=== PATIENT | female | born 1940 | race Caucasian/White ===

== ENCOUNTER 2016-09-06 12:02 | Outpatient (CLI) | payer MEDICARE, OTHER | END 2016-09-06 12:03 | disposition home or self-care (01) | DX: I48.0 Paroxysmal atrial fibrillation (principal) ==

== ENCOUNTER 2016-09-09 10:57 | Outpatient (CLI) | payer MEDICARE, OTHER | END 2016-09-09 10:58 | disposition home or self-care (01) | DX: I48.0 Paroxysmal atrial fibrillation (principal) ==

== ENCOUNTER 2016-09-12 13:10 | Outpatient (CLI) | payer MEDICARE, OTHER | END 2016-09-12 13:11 | disposition home or self-care (01) | DX: I48.0 Paroxysmal atrial fibrillation (principal) ==

== ENCOUNTER 2016-09-22 10:28 | Outpatient (CLI) | payer MEDICARE, OTHER | END 2016-09-22 10:29 | disposition home or self-care (01) | LOC: LAB 10:28 | PROVIDERS: ATTEND Internal Medicine | DX: I48.0 Paroxysmal atrial fibrillation (principal) | CPT/HCPCS: 85610 ==

== ENCOUNTER 2016-11-14 12:55 | Observation (INO) | payer MEDICARE, OTHER ==
[2016-11-14] MEDS ORDERED: NITROGLYCERIN 2% PASTE TOP STA (13:45)
[2016-11-14] MEDS ORDERED: NITROGLYCERIN 2% PASTE TOP ONE (13:47)
[2016-11-14] MEDS ORDERED: FUROSEMIDE 40 MG/4 ML VIAL IVP STA (14:43)
[2016-11-14] MEDS ORDERED: FUROSEMIDE 20 MG/2 ML VIAL IVP ONE (14:58)
[2016-11-14] MEDS ORDERED: ASPIRIN CHEW 81 MG TABLET PO ONE ×2 (15:46→18:00)
[2016-11-14] MEDS ORDERED: NITROGLYCERIN SL 0.4 MG TABLET SL PRN (15:46)
[2016-11-14] MEDS ORDERED: MORPHINE 2 MG/ML SYRINGE IVP PRN (15:46)
[2016-11-14] MEDS ORDERED: GABAPENTIN 300 MG CAPSULE PO PRN (15:48)
[2016-11-14] MEDS ORDERED: traZODone 50 MG TABLET PO SCH ×2 (16:00→21:00)
[2016-11-14] MEDS ORDERED: ZOLEDRONIC ACID 5 MG IV SCH (16:00)
[2016-11-14] MEDS: methylPREDNISolone SUCCINATE 40 MG/ML VIAL IVP SCH ×2 (17:51→22:06)
[2016-11-14] MEDS: SODIUM CHLORIDE FLUSH 0.9% 10 ML SYRINGE IVP PRN (17:51)
[2016-11-14] MEDS ORDERED: ONDANSETRON ODT 4 MG TABLET TL PRN (18:50)
[2016-11-14] MEDS: oxyCOD/ACETAMIN 5 MG/325 MG TABLET PO PRN ×2 (19:46→22:06)
[2016-11-14] MEDS: IPRATROPIUM/ALBUTEROL 3 ML NEB INH PRN (20:36)
[2016-11-14] MEDS: BUDESONIDE 0.5 MG/2 ML NEB INH SCH (20:36)
[2016-11-14] MEDS: APIXABAN 2.5 MG TABLET PO SCH (20:37)
[2016-11-14] MEDS: METOPROLOL TARTRATE 50 MG TABLET PO SCH (20:37)
[2016-11-14] MEDS ORDERED: METOPROLOL TARTRATE 25 MG TABLET PO SCH (21:00)
[2016-11-14] MEDS: SODIUM CHLORIDE FLUSH 0.9% 10 ML SYRINGE IVP SCH (22:06)
[2016-11-14] MEDS ORDERED: oxyCOD/ACETAMIN 5 MG/325 MG TABLET PO SCH (23:00)
[2016-11-15] MEDS: oxyCOD/ACETAMIN 5 MG/325 MG TABLET PO PRN ×3 (03:19→12:27)
[2016-11-15] MEDS: methylPREDNISolone SUCCINATE 40 MG/ML VIAL IVP SCH (06:21)
[2016-11-15] MEDS: SODIUM CHLORIDE FLUSH 0.9% 10 ML SYRINGE IVP SCH (06:21)
[2016-11-15] MEDS: BUDESONIDE 0.5 MG/2 ML NEB INH SCH (07:32)
[2016-11-15] MEDS: IPRATROPIUM/ALBUTEROL 3 ML NEB INH PRN (07:32)
[2016-11-15] MEDS ORDERED: DULoxetine 30 MG CAPSULE PO SCH (09:00)
[2016-11-15] MEDS ORDERED: LOSARTAN 50 MG TABLET PO SCH (09:00)
[2016-11-15] MEDS ORDERED: CHOLECALCIFEROL 5,000 UNIT CAPSULE PO SCH (09:00)
[2016-11-15] MEDS ORDERED: POLYETHYLENE GLYCOL 3350 17 GM PACKET PO SCH (09:00)
[2016-11-15] MEDS ORDERED: LUBIPROSTONE 24 MCG PO SCH (09:00)
[2016-11-15] MEDS ORDERED: diltiaZEM CD 120 MG CAPSULE PO SCH (09:00)
[2016-11-15] MEDS: APIXABAN 2.5 MG TABLET PO SCH (09:23)
[2016-11-15] MEDS: METOPROLOL TARTRATE 50 MG TABLET PO SCH (09:24)
[2016-11-15] MEDS: SODIUM CHLORIDE FLUSH 0.9% 10 ML SYRINGE IVP PRN ×2 (09:36→12:28)
[2016-11-15] MEDS ORDERED: FUROSEMIDE 40 MG TABLET PO SCH (10:00)
[2016-11-15] MEDS ORDERED: FUROSEMIDE 40 MG/4 ML VIAL IVP ONE (11:49)
== END 2016-11-15 14:25 | disposition home or self-care (01) ==
DX: I13.0 Hypertensive heart and chronic kidney disease with heart failure and stage 1 through stage 4 chronic kidney disease, or unspecified chronic kidney disease (principal); I50.21 Acute systolic (congestive) heart failure; J44.9 Chronic obstructive pulmonary disease, unspecified; I48.2 Chronic atrial fibrillation; I27.2 Other secondary pulmonary hypertension; R09.02 Hypoxemia; K59.09 Other constipation; M54.9 Dorsalgia, unspecified; G89.4 Chronic pain syndrome; M81.0 Age-related osteoporosis without current pathological fracture; F41.8 Other specified anxiety disorders; Z79.01 Long term (current) use of anticoagulants; Z87.891 Personal history of nicotine dependence; Z79.51 Long term (current) use of inhaled steroids; Z79.891 Long term (current) use of opiate analgesic
CPT/HCPCS: 36415; 71020; 80048; 80053; 83690; 83880; 84484; 85025; 93005; 93010; 93306; 94640; 94761; 96374; 96375; 96376; 99284; 99285; A9270; G0378; J7620; J7626

== ENCOUNTER 2016-11-24 12:01 | Outpatient (CLI) | payer MEDICARE, OTHER | END 2016-11-24 12:02 | disposition home or self-care (01) | DX: I48.1 Persistent atrial fibrillation (principal) ==

== ENCOUNTER 2017-03-16 11:40 | Inpatient (IN) | payer MEDICARE, OTHER ==
[2017-03-16 15:10] LABS: BASOPHILS # (AUTO) 0.1 10^3/uL (0.0-0.1); EOSINOPHILS # (AUTO) 0.2 10^3/uL (0.0-0.7); EOSINOPHILS % (AUTO) 2.1 %; HCT - HEMATOCRIT 39.8 % (37.0-47.0); HGB - HEMOGLOBIN 13.3 g/dL (12.0-16.0); LYMPHOCYTES # (AUTO) 1.4 10^3/uL (1.5-3.5); LYMPHOCYTES % (AUTO) 17.5 %; MEAN CORPUSCULAR HEMOGLOBIN 27.9 pg (27.0-31.0); MEAN CORPUSCULAR HGB CONC 33.3 g/dL (32.0-36.0); MEAN CORPUSCULAR VOLUME 83.7 fL (81.0-99.0); MEAN PLATELET VOLUME 8.4 fL (7.9-10.8); MONOCYTES # (AUTO) 0.7 10^3/uL (0.0-1.0); MONOCYTES % (AUTO) 8.6 %; NEUTROPHILS # (AUTO) 5.7 10^3/uL (1.5-6.6); NEUTROPHILS % (AUTO) 70.8 %; RED BLOOD COUNT 4.76 10^6/uL (4.20-5.40); RED CELL DISTRIBUTION WIDTH 13.6 % (12.0-15.0); UNCORRECTED WHITE BLOOD COUNT 8.1 x10^3/uL; WHITE BLOOD COUNT 8.1 x10^3/uL (4.8-10.8)
[2017-03-16] MEDS ORDERED: SODIUM CHLORIDE FLUSH 0.9% 10 ML SYRINGE IVP ONE ×3 (15:20→22:06)
[2017-03-16 15:25] LABS: ALBUMIN/GLOBULIN RATIO 1.3 (1.0-2.2); BILIRUBIN,TOTAL 0.8 mg/dL (0.2-1.0); CALCIUM 9.4 mg/dL (8.5-10.3); CREATININE 0.7 mg/dL (0.4-1.0); POTASSIUM 3.5 mmol/L (3.5-5.0); TOTAL PROTEIN 7.2 g/dL (6.7-8.2)
--- NOTE | 2017-03-16 15:56 | ED Physician Documentation ---
History of Present Illness - Stated complaint Stated Complaint: DIFFICULTY BREATHING - Chief complaint Chief Complaint: Cardiac - History obtained from History obtained from: Patient, Family - History of Present Illness Timing: How many weeks ago (1) Pain level max: 4 Pain level now: 4 Improved by: rest Worsened by: walking - Additonal information Additional information: Patient is a 76-year-old female who presents to the emergency department with difficulty breathing and a 4 pound weight gain after a cardiac ablation on March 08 at [facility] with Dr. Alcala. She denies any current chest pain. No fevers. No cough. Review of Systems Ten Systems: 10 systems reviewed and negative Constitutional: denies: Fever, Chills Nose: denies: Rhinorrhea / runny nose, Congestion Throat: denies: Sore throat Cardiac: denies: Chest pain / pressure Respiratory: reports: Dyspnea. 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 - Present Medications Home Medications: Ambulatory Orders Medication Instructions Recorded Confirmed Omeprazole [PriLOSEC] 20 mg PO DAILY 06/27/13 03/16/17 Ondansetron [Zofran Odt] 8 mg PO Q8H PRN 06/27/13 03/16/17 Albuterol Sulfate [Proventil Hfa 2 puffs INH Q4H PRN 08/19/16 11/14/16 Inhaler] Duloxetine HCl [Cymbalta] 60 mg PO DAILY 08/19/16 03/16/17 Fluticasone Propionate [Flovent 110 mcg INH BID PRN 08/19/16 03/16/17 Hfa] Gabapentin 300 mg PO TID 08/19/16 03/16/17 Losartan Potassium 50 mg PO DAILY 08/19/16 03/16/17 Lubiprostone [Amitiza] 24 mcg PO DAILY 08/19/16 03/16/17 Zoledronic Acid [Reclast] 5 mg IV .YEARLY 08/19/16 03/16/17 oxyCODONE/ACET 5/325 [Percocet 5 1 - 2 tab PO Q6H PRN 08/19/16 03/16/17 mg/325 mg] traZODone [Desyrel] 100 mg PO HS 08/19/16 03/16/17 Cholecalciferol [Vitamin D3] 5,000 units PO DAILY 11/14/16 03/16/17 Diltiazem HCl [Diltiazem 24Hr ER] 120 mg PO DAILY 11/14/16 03/16/17 Metoprolol Tartrate [Lopressor] 50 mg PO BID 11/14/16 03/16/17 Furosemide [Lasix] 80 mg PO DAILY #60 tablet 11/15/16 03/16/17 Biotin 5,000 mcg PO DAILY 03/16/17 03/16/17 Potassium Chloride 20 meq PO DAILY 03/16/17 03/16/17 - Allergies Allergies/Adverse Reactions: Allergies Allergy/AdvReac Type Severity Reaction Status Date / Time Penicillins AdvReac Intermediate rapid HR Verified 03/16/17 11:49 Sulfa (Sulfonamide AdvReac Intermediate Cramps Verified 03/16/17 11:49 Antibiotics) clindamycin AdvReac Nausea Verified 03/16/17 11:49 - Social History Does the pt smoke?: No Smoking Status: Former smoker Does the pt drink ETOH?: Yes Does the pt have substance abuse?: No - Immunizations Immunizations are current?: Yes - POLST Patient has POLST: Yes POLST Status: Full Code PD ED PE NORMAL - Vitals Vital signs reviewed: Yes - General General: Alert and oriented X 3, No acute distress - HEENT HEENT: Moist mucous membranes, Pharynx benign - Neck Neck: Supple, no meningeal sign - Cardiac Cardiac: RRR - Respiratory Respiratory: No respiratory distress, Other (Mild rhonchi bilaterally) - Abdomen Abdomen: Soft, Non tender, Non distended - Derm Derm: Warm and dry - Extremities Extremities: Other (2+ bilateral lower extremity pitting edema) - Neuro Neuro: Alert and oriented X 3 - Psych Psych: Normal mood, Normal affect Results - Vitals Vitals: Vital Signs - 24 hr 03/16/17 03/16/17 03/16/17 11:42 14:17 15:22 Temperature 36.7 C 35.6 C L Heart Rate 47 L 55 L 43 L Respiratory 24 19 20 Rate Blood Pressure 108/43 L 102/52 L 121/52 L O2 Saturation 93 92 98 03/16/17 17:19 Temperature Heart Rate 47 L Respiratory 12 Rate Blood Pressure 136/42 H O2 Saturation 97 Oxygen O2 Source Room air - EKG (time done) 1546 Rate: Rate (enter#) (46) Rhythm: Sinus bradycardia [place]: Normal Intervals: Prolonged [place] QRS: Normal Ischemia: Non specific changes Computer interpretation: Agree with computer - Labs Labs: Laboratory Tests 03/16/17 03/16/17 03/16/17 14:55 14:55 14:55 WBC 8.1 RBC 4.76 Hgb 13.3 Hct 39.8 MCV 83.7 MCH 27.9 MCHC 33.3 RDW 13.6 Plt Count 196 MPV 8.4 Neut # 5.7 Lymph # 1.4 L [place] # 0.7 Eos # 0.2 Baso # 0.1 Absolute Nucleated RBC 0.00 Nucleated RBCs 0.0 Sodium 141 Potassium 3.5 Chloride 104 Carbon Dioxide 29 Anion Gap 8.0 BUN 15 Creatinine 0.7 Estimated GFR (MDRD) 81 L Glucose 94 Calcium 9.4 Total Bilirubin 0.8 AST 29 ALT 51 Alkaline Phosphatase 82 B-Natriuretic Peptide 384 H Total Protein 7.2 Albumin 4.0 Globulin 3.2 Albumin/Globulin Ratio 1.3 Lipase 19 L - Rads (name of study) cxr Radiology: Prelim report reviewed, EMP read contemporaneously, See rad report ( Pulmonary venous congestion. Mild diffuse bilateral airspace disease, could represent mild pulmonary edema. Stable marked cardiomegaly. ) ct chest Radiology: Prelim report reviewed, EMP read contemporaneously, See rad report ( No evidence of pulmonary emboli. Acute on chronic lung disease consisting of tiny bilateral pleural effusions and diffuse interstitial prominence, pulmonary edema favored over airway disease. Half a dozen small subpleural nonspecific densities. Recommend consideration of a follow-up noncontrast chest CT in 6 months to begin determination of long-term stability and therefore, significance (assuming that this patient has no previous outside chest CTs to compare ). 4. Moderate cardiomegaly. Small pericardial effusion. 5. Moderate hiatal hernia. 6. Mild mediastinal adenopathy. ) PD MEDICAL DECISION MAKING - ED course Complexity details: reviewed results, re-evaluated patient, considered differential, d/w patient, d/w clinical sales consultant ED course: 1649 - Dr. Alcala (cardiology) recommends decrease metoprolol to 25mg PO BID and continue flecanide. IV lasix and monitor overnight in the hospital on tele. Patient is a 76-year-old female who appears to be fluid overloaded after her recent cardiac ablation. She also has significant bradycardia. After discussion with her editor managing director, will place on Lasix here and decrease her metoprolol to 25 mg p.o. twice daily. She is not hypoxic. Discussed the case with the hospitalist here who accepts. This document was made in part using voice recognition software. While efforts are made to proofread this document, sound alike and grammatical errors may occur. Departure - Departure Disposition: ED Place in Observation Clinical Impression: Pericardial effusion, Bradycardia Pulmonary edema Qualifiers: Chronicity: acute Qualified Code(s): J81.0 - Acute pulmonary edema Condition: Stable Discharge Date/Time: 03/16/17 20:03
--- NOTE | 2017-03-16 16:12 | XRAY Preliminary Report ---
Exam: XR Chest 1 View IMPRESSION: Pulmonary venous congestion. Mild diffuse bilateral airspace disease, could represent mil d pulmonary edema. Stable marked cardiomegaly. [facility] SITE ID: [id number]
--- NOTE | 2017-03-16 16:14 | XRAY Report ---
EXAM: CHEST RADIOGRAPHY EXAM DATE: 03/16/2017 04:03 PM. CLINICAL HISTORY: Dyspnea. COMPARISON: Chest 11/14/2016. TECHNIQUE: 1 view. FINDINGS: Lungs/Pleura: Pulmonary venous congestion. Mild diffuse bilateral airspace disease, could represent m ild pulmonary edema. Mediastinum: Stable marked cardiomegaly. IMPRESSION: Pulmonary venous congestion. Mild diffuse bilateral airspace disease, could represent mil d pulmonary edema. Stable marked cardiomegaly. [facility] Referring Provider Line: [phone] SITE ID: [id number]
[2017-03-16] MEDS ORDERED: IOPAMIDOL-300 100 ML VIAL IVP ONE (16:25)
--- NOTE | 2017-03-16 16:47 | CT Preliminary Report ---
Exam: CT Chest Angio (PE) IMPRESSION: 1. No evidence of pulmonary emboli. 2. Acute on chronic lung disease consisting of tiny bilateral pleural effusions and diffuse interstit ial prominence, pulmonary edema favored over airway disease. 3. Half a dozen small subpleural nonspecific densities. Recommend consideration of a follow-up noncon trast chest CT in 6 months to begin determination of long-term stability and therefore significance ( assuming that this patient has no previous outside chest CTs to compare ). 4. Moderate cardiomegaly. Small pericardial effusion. 5. Moderate hiatal hernia. 6. Mild mediastinal adenopathy. [facility] SITE ID: [id number]
[2017-03-16] MEDS ORDERED: FUROSEMIDE 40 MG/4 ML VIAL IVP STA (16:56)
--- NOTE | 2017-03-16 17:08 | CT Report ---
EXAM: CT ANGIOGRAM CHEST EXAM DATE: 03/16/2017 04:22 p.m. CLINICAL HISTORY: Dyspnea, status post cardiac ablation 03/08. Bilateral leg and feet edema. COMPARISON: None. TECHNIQUE: Routine helical imaging was performed through the chest in the pulmonary arterial phase. I V Contrast: 80 mL Isovue-300. Reconstructions: Coronal 3-D MIP reconstructions.Sagittal and coronal. In accordance with CT protocol optimization, one or more of the following dose reduction techniques w ere utilized for this exam: automated exposure control, adjustment of mA and/or KV based on patient s ize, or use of iterative reconstructive technique. FINDINGS: Pulmonary Arteries: Diagnostic quality: Adequate through the segmental arteries. No evidence for acute or chronic pulmona ry emboli. RV/LV is within normal limits. There is no interventricular septal bowing. There is no reflux of cont rast material in the IVC. Lungs/Pleura: Overexpanded, emphysematous changes. Mild diffuse interstitial prominence. Half a dozen small subpleural nodular densities as follows, series 5: 5 x 7 mm right lower lobe image 76, 6 x 4 m m lingula image 76, 4 mm left lower lobe image 79, 2 x 8 mm right lower lobe image 94. Tiny bilateral pleural effusions. Mediastinum: Moderate cardiomegaly. Small pericardial effusion. Multiple subcentimeter as well as mildly enlarged mediastinal lymph nodes, greatest cross-sectional d iameter 1.4 cm. Moderate hiatal hernia. Thoracic Aorta: Unremarkable. Upper Abdomen: Unremarkable. Other: None. IMPRESSION: 1. No evidence of pulmonary emboli. 2. Acute on chronic lung disease consisting of tiny bilateral pleural effusions and diffuse interstit ial prominence, pulmonary edema favored over airway disease. 3. Half a dozen small subpleural nonspecific densities. Recommend consideration of a follow-up noncon trast chest CT in 6 months to begin determination of long-term stability and therefore, significance (assuming that this patient has no previous outside chest CTs to compare ). 4. Moderate cardiomegaly. Small pericardial effusion. 5. Moderate hiatal hernia. 6. Mild mediastinal adenopathy. [facility] Referring Provider Line: [phone] SITE ID: [id number]
[2017-03-16] MEDS ORDERED: FUROSEMIDE 40 MG/4 ML VIAL ONE (17:10)
[2017-03-16] MEDS ORDERED: oxyCOD/ACETAMIN 5 MG/325 MG TABLET PO STA (18:14)
[2017-03-16] MEDS ORDERED: oxyCOD/ACETAMIN 5 MG/325 MG TABLET PO ONE ×2 (18:22→18:25)
[2017-03-16] MEDS ORDERED: ONDANSETRON 4 MG/2 ML VIAL IVP PRN (19:46)
[2017-03-16] MEDS ORDERED: FLUTICASONE HFA 110 MCG INHALER INH PRN (19:48)
[2017-03-16 19:55] LABS: BASOPHILS % (AUTO) 0.4 %; EOSINOPHILS # (AUTO) 0.1 10^3/uL (0.0-0.7); EOSINOPHILS % (AUTO) 1.7 %; HCT - HEMATOCRIT 40.3 % (37.0-47.0); HGB - HEMOGLOBIN 13.4 g/dL (12.0-16.0); LYMPHOCYTES # (AUTO) 1.1 10^3/uL (1.5-3.5); LYMPHOCYTES % (AUTO) 14.6 %; MEAN CORPUSCULAR HEMOGLOBIN 27.8 pg (27.0-31.0); MEAN CORPUSCULAR HGB CONC 33.2 g/dL (32.0-36.0); MEAN CORPUSCULAR VOLUME 83.7 fL (81.0-99.0); MEAN PLATELET VOLUME 8.3 fL (7.9-10.8); MONOCYTES # (AUTO) 0.7 10^3/uL (0.0-1.0); MONOCYTES % (AUTO) 9.4 %; NEUTROPHILS # (AUTO) 5.6 10^3/uL (1.5-6.6); NEUTROPHILS % (AUTO) 73.9 %; RED BLOOD COUNT 4.82 10^6/uL (4.20-5.40); RED CELL DISTRIBUTION WIDTH 13.5 % (12.0-15.0); UNCORRECTED WHITE BLOOD COUNT 7.6 x10^3/uL; WHITE BLOOD COUNT 7.6 x10^3/uL (4.8-10.8)
[2017-03-16 20:16] LABS: INR 2.2 (0.8-1.2); PT - PROTHROMBIN TIME 25.6 secs (9.9-12.6)
[2017-03-16] MEDS: GABAPENTIN 100 MG CAPSULE PO SCH (22:12)
[2017-03-16] MEDS: traZODone 50 MG TABLET PO SCH (22:12)
[2017-03-16] MEDS: FUROSEMIDE 40 MG/4 ML VIAL IVP SCH (22:12)
[2017-03-16 22:25] LABS: BILIRUBIN,URINE NEGATIVE (NEGATIVE)
[2017-03-16 22:27] LABS: UA w/ MICROSCOPIC CHARGE YES
[2017-03-16 22:33] LABS: UR CULTURE IF IND INDICATED
[2017-03-17] MEDS: oxyCOD/ACETAMIN 5 MG/325 MG TABLET PO PRN ×3 (01:43→22:15)
[2017-03-17] MEDS ORDERED: oxyCOD/ACETAMIN 5 MG/325 MG TABLET PO SCH (04:00)
[2017-03-17] MEDS ORDERED: BUDESONIDE 0.5 MG/2 ML NEB INH PRN (07:19)
[2017-03-17] MEDS ORDERED: CHOLECALCIFEROL 1,000 UNIT TABLET PO SCH (09:00)
[2017-03-17] MEDS: GABAPENTIN 100 MG CAPSULE PO SCH ×3 (09:30→22:15)
[2017-03-17] MEDS: FUROSEMIDE 40 MG/4 ML VIAL IVP SCH ×2 (09:31→20:09)
[2017-03-17] MEDS: DULoxetine 30 MG CAPSULE PO SCH (09:31)
[2017-03-17] MEDS: FAMOTIDINE 20 MG TABLET PO SCH (09:31)
[2017-03-17] MEDS: LOSARTAN 50 MG TABLET PO SCH (09:31)
[2017-03-17] MEDS: POTASSIUM CHLORIDE 20 MEQ TABLET PO SCH (09:31)
[2017-03-17] MEDS: RIVAROXABAN 10 MG TABLET PO SCH (12:58)
--- NOTE | 2017-03-17 16:23 | PROVIDER PROGRESS NOTE ---
Assessment/Plan - Problem List (1) Congestive heart failure Qualifiers: Congestive heart failure type: diastolic Congestive heart failure chronicity: acute on chronic Qualified Code(s): I50.33 - Acute on chronic diastolic (congestive) heart failure Assessment/Plan: Echo showed nl LVEF, mild-moderate aortic stenosis and trivial pericardial effusion. Trops were cancelled on [employer], with no knowledge to me. This afternoon, Pt went into Afib with a controlled response, HR of 80 and told RN she was more symptomatic. EKG confirmed Afib, no other EKG changes. Will re-order troponin blood tests, continue diuresis and restart Flecainide to return to NSR (3) Atrial fibrillation with RVR Assessment/Plan: Paroxysms of Afib can be seen after ablation and may be the cause of her CHF exacerbation. Will restart Flecainide, but no B-cassie or Diltiazem due to presentation with markd bradycardia. Records of her Cardiology management would be helpful, will request. Continue Xarelto, which should be taken with dinner, not in am, as she was doing at home. (4) Pericardial effusion Assessment/Plan: Unclear if this is due to CHF exacerbation or a result of ablation. Old records would be helpful, tereso request. Since ther is no tamponade and a trivial pericardial effusion, will continue with diuresis, follow Is and Os (5) COPD (chronic obstructive pulmonary disease) Qualifiers: COPD type: emphysema Assessment/Plan: Abnormal CXR with mediastinal lymph nodes, which may also be adding to her SOB. Unknown if this is a new finding, but CT chest showed no tumor to suggest lung cancer. Continue prn inhalers. (6) Deep vein thrombosis (DVT) prophylaxis not tolerated by patient Assessment/Plan: Pt on full dose anticoagulation, using Xarelto. - Current Meds Current Meds: Current Medications Generic Name Dose Route Start Last Admin Trade Name Freq PRN Reason Stop Dose Admin Cholecalciferol 5,000 unit 03/17/17 09:00 03/17/17 09:31 Vitamin D3 PO 5,000 unit DAILY BOB Administration Duloxetine HCl 60 mg 03/17/17 09:00 03/17/17 09:31 Cymbalta PO 60 mg DAILY BOB Administration Famotidine 20 mg 03/17/17 09:00 03/17/17 09:31 Pepcid PO 20 mg DAILY BOB Administration Furosemide 40 mg 08/03/17 21:00 03/17/17 09:31 Lasix Inj 40 Mg Vial IVP 40 mg BID BOB Administration Gabapentin 300 mg 03/16/17 22:00 03/17/17 14:09 Neurontin PO 300 mg TID BOB Administration Losartan Potassium 50 mg 03/17/17 09:00 03/17/17 09:31 Cozaar PO Not Given DAILY BOB Oxycodone/Acetaminophen 1 tab 03/16/17 19:50 03/17/17 14:08 Percocet 5 Mg/325 Mg PO 1 tab Q6H PRN Administration PAIN Potassium Chloride 20 meq 03/17/17 09:00 03/17/17 09:31 K-Dur PO 20 meq DAILY BOB Administration Rivaroxaban 20 mg 03/17/17 12:00 03/17/17 12:58 Xarelto PO 20 mg 1700 BOB Administration Trazodone HCl 100 mg 03/16/17 21:00 03/16/17 22:12 Desyrel PO 100 mg QPM BOB Administration - Lab Result Fish Bone Diagrams: 03/16/17 19:44 03/19/17 07:58 - Additional Planning My Orders: My Active Orders 03/16/17 19:32 Activity Orders [RC] QSHIFT 03/16/17 19:46 Ondansetron Inj [Zofran Inj] 4 mg IVP Q12H PRN 03/16/17 19:50 oxyCODONE/ACET 5/325 [Percocet 5 mg/325 mg] 1 tab PO Q6H PRN 03/16/17 19:56 Telemetry- [RC] Q4HR 03/16/17 21:00 FUROSEMIDE INJ 40mg VIAL [LASIX INJ 40 mg VIAL] 40 mg IVP BID traZODone [Desyrel] 100 mg PO QPM 03/16/17 22:00 Gabapentin [Neurontin] 300 mg PO TID 03/17/17 07:19 Budesonide [Pulmicort] 0.5 mg INH RTBID PRN 03/17/17 09:00 Cholecalciferol [Vitamin D3] 5,000 unit PO DAILY DULoxetine [Cymbalta] 60 mg PO DAILY Famotidine [Pepcid] 20 mg PO DAILY Losartan [Cozaar] 50 mg PO DAILY Potassium Chloride [K-Dur] 20 meq PO DAILY 03/17/17 10:00 Echo Transthoracic Complete [ECHO] Routine 03/17/17 12:00 Rivaroxaban [Xarelto] 20 mg PO 1700 03/17/17 15:07 RT [Nebulizer/MDI Tx.] [RC] .bidprn 03/17/17 21:00 Flecainide [Tambocar] 75 mg PO BID Subjective - Subjective Patient Reports: Feeling Better (Less SOB. Having good diuresis.) Nursing Reports: No Complaints Objective Vital Signs: Vital Signs - 24 hr 03/16/17 03/16/17 03/16/17 20:07 20:15 23:19 Temperature 36.4 C L 36.7 C Heart Rate 53 L Heart Rate [ 56 L 54 L Brachial] Respiratory 23 16 18 Rate Blood Pressure 114/64 Blood Pressure 136/75 H 131/47 H [Right Brachial artery] O2 Saturation 93 94 03/17/17 03/17/17 03/17/17 06:05 08:41 13:26 Temperature 36.4 C L 36.3 C L 36.5 C Heart Rate Heart Rate [ 51 L 52 L 60 Brachial] Respiratory 16 17 16 Rate Blood Pressure Blood Pressure 128/49 L 99/51 L 128/44 L [Right Brachial artery] O2 Saturation 100 94 96 03/17/17 15:57 Temperature 36.4 C L Heart Rate Heart Rate [ 80 Brachial] Respiratory 16 Rate Blood Pressure Blood Pressure 157/55 H [Right Brachial artery] O2 Saturation 95 Oxygen O2 Source Room air I&O (Last 24 Hrs): Intake and Output Totals x24h 03/15/17 03/16/17 03/17/17 23:59 23:59 23:59 Intake Total 336 770 Output Total 650 900 Balance -314 -130 General: Alert, Oriented x3 HEENT: Mucous membr. moist/pink Neck: No JVD, +2 carotid pulse wo bruit Cardiovascular: Regular rate, Other (Distant HS) Respiratory: No respiratory distress, Breath sounds nml Abdomen: Soft Extremities: Other (Trace pretibbial edema) - Results Results: Laboratory Results WBC 7.6 x10^3/uL (4.8-10.8) 03/16/17 19:44 RBC 4.82 10^6/uL (4.20-5.40) 03/16/17 19:44 Hgb 13.4 g/dL (12.0-16.0) 03/16/17 19:44 Hct 40.3 % (37.0-47.0) 03/16/17 19:44 MCV 83.7 fL (81.0-99.0) 03/16/17 19:44 MCH 27.8 pg (27.0-31.0) 03/16/17 19:44 MCHC 33.2 g/dL (32.0-36.0) 03/16/17 19:44 RDW 13.5 % (12.0-15.0) 03/16/17 19:44 Plt Count 203 10^3/uL (130-450) 03/16/17 19:44 MPV 8.3 fL (7.9-10.8) 03/16/17 19:44 Neut # 5.6 10^3/uL (1.5-6.6) 03/16/17 19:44 Lymph # 1.1 10^3/uL (1.5-3.5) L 03/16/17 19:44 [place] # 0.7 10^3/uL (0.0-1.0) 03/16/17 19:44 Eos # 0.1 10^3/uL (0.0-0.7) 03/16/17 19:44 Baso # 0.0 10^3/uL (0.0-0.1) 03/16/17 19:44 Absolute Nucleated RBC 0.00 x10^3/uL 03/16/17 19:44 Nucleated RBCs 0.0 /100WBC 03/16/17 19:44 PT 25.6 secs (9.9-12.6) H 03/16/17 19:44 INR 2.2 (0.8-1.2) H 03/16/17 19:44 Sodium 141 mmol/L (135-145) 03/16/17 14:55 Potassium 3.5 mmol/L (3.5-5.0) 03/16/17 14:55 Chloride 104 mmol/L (101-111) 03/16/17 14:55 Carbon Dioxide 29 mmol/L (21-32) 03/16/17 14:55 Anion Gap 8.0 (6-13) 03/16/17 14:55 BUN 15 mg/dL (6-20) 03/16/17 14:55 Creatinine 0.7 mg/dL (0.4-1.0) 03/16/17 14:55 Estimated GFR (MDRD) 81 (>89) L 03/16/17 14:55 Glucose 94 mg/dL (70-100) 03/16/17 14:55 Calcium 9.4 mg/dL (8.5-10.3) 03/16/17 14:55 Magnesium 2.0 mg/dL (1.7-2.8) 03/16/17 19:44 Total Bilirubin 0.8 mg/dL (0.2-1.0) 03/16/17 14:55 AST 29 IU/L (10-42) 03/16/17 14:55 ALT 51 IU/L (10-60) 03/16/17 14:55 Alkaline Phosphatase 82 IU/L (42-121) 03/16/17 14:55 B-Natriuretic Peptide 384 pg/mL (5-100) H 03/16/17 14:55 Total Protein 7.2 g/dL (6.7-8.2) 03/16/17 14:55 Albumin 4.0 g/dL (3.2-5.5) 03/16/17 14:55 Globulin 3.2 g/dL (2.1-4.2) 03/16/17 14:55 Albumin/Globulin Ratio 1.3 (1.0-2.2) 03/16/17 14:55 Lipase 19 U/L (22-51) L 03/16/17 14:55 Urine Color YELLOW 03/16/17 22:10 Urine Clarity SL. CLOUDY (CLEAR) 03/16/17 22:10 Urine pH 6.0 PH (5.0-7.5) 03/16/17 22:10 Ur Specific [place] 1.010 (1.002-1.030) 03/16/17 22:10 Urine Protein NEGATIVE mg/dL (NEGATIVE) 03/16/17 22:10 Urine Glucose (UA) NEGATIVE mg/dL (NEGATIVE) 03/16/17 22:10 Urine Ketones NEGATIVE mg/dL (NEGATIVE) 03/16/17 22:10 Urine Occult Blood LARGE (NEGATIVE) H 03/16/17 22:10 Urine Nitrite NEGATIVE (NEGATIVE) 03/16/17 22:10 Urine Bilirubin NEGATIVE (NEGATIVE) 03/16/17 22:10 Urine Urobilinogen 1 (NORMAL) E.U./dL (NORMAL) 03/16/17 22:10 Ur Leukocyte Esterase NEGATIVE (NEGATIVE) 03/16/17 22:10 Urine RBC TNTC /HPF (0-5) H 03/16/17 22:10 Urine WBC 6-10 /HPF (0-5) H 03/16/17 22:10 Ur Squamous Epith Cells RARE Squamous (<= Few) 03/16/17 22:10 Urine Bacteria None Seen /HPF (None Seen) 03/16/17 22:10 Ur Microscopic Review INDICATED 03/16/17 22:10 Urine Culture Comments INDICATED 03/16/17 22:10
--- NOTE | 2017-03-17 18:16 | HISTORY & PHYSICAL EXAMINATION ---
DATE OF ADMISSION: 03/16/2017 REASON FOR ADMISSION: Congestive heart failure exacerbation. This is a 76-year-old white female with a history of chronic obstructive pulmonary disease from ex-smoking, she quit 12 years ago. She has a history of hypertension and depression. The patient reports she has had atrial fibrillation for approximately 6 months. By her description she underwent 3 ROSALINDA' s for elective cardioversion and was told "on the first one there was a clot, on the second one there was suspicion of a continued clot, and on the third one the finding was felt to be artifact." It is unclear if cardioversion was ever undertaken. The patient did, however, undergo ablation which was done approximately 8 days ago. Following that, the patient was started on flecainide. Over the past 8 days she has progressively, slowly worsened with dyspnea on exertion, leg edema, weight gain. She denied any anginal pain, but does describe "tightness" and points to her sternal area. She has been compliant with her medications. She was on a novel oral anticoagulant for many months and is compliant with this. REVIEW OF SYSTEMS: She denies any fever, cough, rash, diarrhea, recent travel, and only has symptoms as above. CURRENT MEDICATIONS: Current medications at home were 1. Prilosec. 2. Zofran. 3. Proventil HFA. 4. Cymbalta. 5. Flovent. 6. Gabapentin. 7. Losartan. 8. Amitiza. 9. Reclast yearly . 10. Oxycodone p.r.n. 11. Desyrel. 12. Vitamin D3. 13. Diltiazem. 14. Lopressor. 15. Lasix. 16. Biotin. 17. Potassium. 18. Unknown dose of flecainide. 19. Xarelto 20 mg which she took in the morning. ALLERGIES: 1. PENICILLIN. 2. SULFA. 3. CLINDAMYCIN. SOCIAL HISTORY: She is an ex-smoker who quit 12 years ago and drinks rare alcohol socially. She has a POLST in place and DESIRES TO BE A FULL CODE. PHYSICAL EXAMINATION: GENERAL: Physical exam reveals an elderly white female who is in no distress, sitting upright in bed. VITAL SIGNS: Blood pressure 130/50, heart rate is in the 50's and as low as 46 in sinus bradycardia. Oxygen saturation 94% on room air. HEENT: Unremarkable. Her oral mucosa is moist. NECK: Supple with no JVD in a vertical position. No carotid bruits. CHEST: Chest has bilateral rales heard 1/[address] up and diminished breath sounds at the apices bilaterally. HEART: Heart sounds are normal without audible murmur. ABDOMEN: Soft, nontender, with normal bowel sounds. EXTREMITIES: Show 1+ pretibial edema to the mid shins. There is no clubbing or cyanosis. NEURO: She is grossly intact. LABS: Sodium 141, potassium 3.5, BUN 15, creatinine 0.7, bilirubin 0.8, normal liver tests. BNP 384, INR is 2.2, but this is not reliable on Xarelto treatment. White blood count 8.1, hemoglobin 13.3, platelet count normal, normal differential. EKG sinus bradycardia with left atrial enlargement and borderline prolonged QT with a QTC measurement of 500 milliseconds. Chest x-ray pulmonary view is congestion and diffuse bilateral air space disease which could represent pulmonary edema and there is marked cardiomegaly. CT of the chest was done which showed a moderate hiatal hernia, no evidence of pulmonary emboli, acute or chronic. Normal LV and RV sizes, small pericardial effusion, and mildly enlarged mediastinal lymph nodes. IMPRESSION/DIAGNOSES: 1. Congestive heart failure exacerbation, unspecified whether this is systolic or diastolic. 2. Recent atrial fibrillation ablation, unspecified if this is AV petar ablation or atrial fibrillation, on new flecainide and Xarelto for unknown duration. 3. Chronic obstructive pulmonary disease history with abnormal chest x-ray showing enlarged mediastinal lymph nodes. 4. Ex-smoker. 5. History of atrial fibrillation. 6. Depression. PLAN: 1. Given the bradycardia, hold the heart rate slowing medications. Until we know her LV ejection fraction or have records of a recent result. Hold the flecainide which may cause pro-arrhythmias if there is heart failure from systolic dysfunction. Place the patient on telemetry. Obtain an echo to establish LV ejection fraction. Begin IV diuretics and follow I's and O's. I discussed salt avoidance with the patient and the patient was very surprised that nobody had ever educated her regarding this. Obtain troponins x3 to rule out myocardial infarction as the cause of the heart failure. 2. Continue with her p.r.n. inhaler for the chronic obstructive pulmonary disease history. 3. Continue with her home medications for depression and other diagnoses. DVT prophylaxis is not needed as she is on a therapeutic dose of anticoagulation. JOB #: [id number] EXT JOB #:[id number] MARYJANE
[2017-03-17] MEDS: FLECAINIDE 50 MG TABLET PO SCH (20:10)
[2017-03-17] MEDS: HYDROmorphone 1 MG/ML SYRINGE IVP PRN (20:10)
[2017-03-17] MEDS: FLUTICASONE HFA 110 MCG INHALER INH SCH (20:10)
[2017-03-17] MEDS ORDERED: METOPROLOL TARTRATE 25 MG TABLET PO SCH (22:00)
[2017-03-17] MEDS: traZODone 50 MG TABLET PO SCH (22:15)
[2017-03-18] MEDS: HYDROmorphone 1 MG/ML SYRINGE IVP PRN ×3 (04:54→20:47)
[2017-03-18] MEDS: GABAPENTIN 100 MG CAPSULE PO SCH ×3 (05:09→21:01)
[2017-03-18] MEDS: SODIUM CHLORIDE FLUSH 0.9% 10 ML SYRINGE IVP PRN ×3 (05:09→21:02)
[2017-03-18 08:01] LABS: CALCIUM 8.7 mg/dL (8.5-10.3); CREATININE 0.7 mg/dL (0.4-1.0); POTASSIUM 3.4 mmol/L (3.5-5.0)
[2017-03-18] MEDS: FLUTICASONE HFA 110 MCG INHALER INH SCH ×3 (08:20→21:03)
[2017-03-18] MEDS: DULoxetine 30 MG CAPSULE PO SCH (08:45)
[2017-03-18] MEDS: FUROSEMIDE 40 MG/4 ML VIAL IVP SCH ×2 (08:45→21:01)
[2017-03-18] MEDS: FLECAINIDE 50 MG TABLET PO SCH ×2 (08:45→21:03)
[2017-03-18] MEDS: oxyCOD/ACETAMIN 5 MG/325 MG TABLET PO PRN ×2 (08:46→14:49)
[2017-03-18] MEDS: POTASSIUM CHLORIDE 20 MEQ TABLET PO SCH (08:46)
[2017-03-18] MEDS: FAMOTIDINE 20 MG TABLET PO SCH (08:46)
[2017-03-18] MEDS: CHOLECALCIFEROL 5,000 UNIT CAPSULE PO SCH (08:47)
[2017-03-18] MEDS: LOSARTAN 50 MG TABLET PO SCH (08:47)
[2017-03-18] MEDS ORDERED: ALBUTEROL 8 GM INHALER INH PRN (09:00)
[2017-03-18] MEDS: POLYETHYLENE GLYCOL 3350 17 GM PACKET PO SCH (14:49)
[2017-03-18] MEDS: RIVAROXABAN 10 MG TABLET PO SCH (17:50)
[2017-03-18] MEDS ORDERED: POTASSIUM CHLORIDE INJ 40 MEQ in SODIUM CHLORIDE 0.9% 1,000 ML IV ONE (18:05)
--- NOTE | 2017-03-18 18:09 | PROVIDER PROGRESS NOTE ---
Assessment/Plan - Problem List (1) Congestive heart failure Qualifiers: Congestive heart failure type: diastolic Congestive heart failure chronicity: acute on chronic Qualified Code(s): I50.33 - Acute on chronic diastolic (congestive) heart failure Assessment/Plan: Leg edema improved. Neg fluid balance each day. Continue present meds. (2) Bradycardia Assessment/Plan: Pt was tachycardic around midnight, in Afib and rceived addl dose of Metoprolol. Today sinus kriss 50-60. Will continue Flecainide, Eliquis. I discussed with Pt and that Afib ablation may need to be repeated 2-3 times for preventing paroxysms of Afib. They understood and said that [facility] EP doctor also explained this. Continue Telemetry and may need a small B-cassie daily dose resumed if tachycardic again. (3) Atrial fibrillation with RVR Assessment/Plan: Pt was tachycardic around midnight, in Afib and rceived addl dose of Metoprolol. Will continue Flecainide, Eliquis. I discussed with Pt and that Afib ablation may need to be repeated 2-3 times for preventing paroxysms of Afib. They understood and said that [facility] EP doctor also explained this. Continue Telemetry and may need a small B-cassie daily dose resumed if tachycardic again. (5) COPD (chronic obstructive pulmonary disease) Qualifiers: COPD type: emphysema Assessment/Plan: No wheezing or concerns. - Current Meds Current Meds: Current Medications Generic Name Dose Route Start Last Admin Trade Name Freq PRN Reason Stop Dose Admin Cholecalciferol 5,000 unit 03/17/17 16:28 03/18/17 08:47 Vitamin D3 PO 5,000 unit DAILY BOB Administration Duloxetine HCl 60 mg 03/17/17 09:00 03/18/17 08:45 Cymbalta PO 60 mg DAILY BOB Administration Famotidine 20 mg 03/17/17 09:00 03/18/17 08:46 Pepcid PO 20 mg DAILY BOB Administration Flecainide Acetate 75 mg 03/17/17 21:00 03/18/17 08:45 Tambocar PO 75 mg BID BOB Administration Furosemide 40 mg 03/16/17 21:00 03/18/17 08:45 Lasix Inj 40 Mg Vial IVP 40 mg BID BOB Administration Gabapentin 300 mg 03/16/17 22:00 03/18/17 14:49 Neurontin PO 300 mg TID BOB Administration Hydromorphone HCl 0.5 mg 03/17/17 19:28 03/18/17 13:03 Dilaudid Inj IVP 0.5 mg Q4HR PRN Administration PAIN Losartan Potassium 50 mg 03/17/17 09:00 03/18/17 08:47 Cozaar PO 50 mg DAILY BOB Administration Oxycodone/Acetaminophen 1 - 2 tab 03/17/17 19:28 03/18/17 14:49 Percocet 5 Mg/325 Mg PO 2 tab Q6H PRN Administration PAIN Fluticasone Hfa 110 1 each 03/17/17 21:00 03/18/17 08:20 Mcg Inhaler INH 1 each BID BOB Administration Albuterol 8 Gm 2 each 03/18/17 09:00 03/18/17 08:20 Inhaler INH 2 each Q4H PRN Administration Wheezing Polyethylene Glycol 17 gm 03/18/17 12:00 03/18/17 14:49 Miralax PO 17 gm DAILY BOB Administration Potassium Chloride 20 meq 03/17/17 09:00 03/18/17 08:46 K-Dur PO 20 meq DAILY BOB Administration Rivaroxaban 20 mg 03/17/17 12:00 03/18/17 17:50 Xarelto PO 20 mg 1700 BOB Administration Sodium Chloride 10 ml 03/18/17 05:08 03/18/17 05:09 Normal Saline Flush 0.9% IVP 10 ml PRN PRN Administration NEEDED PER PROVIDER ORDERS Trazodone HCl 100 mg 03/16/17 21:00 03/17/17 22:15 Desyrel PO 100 mg QPM BOB Administration - Lab Result Fish Bone Diagrams: 03/16/17 19:44 03/18/17 07:27 - Additional Planning My Orders: My Active Orders 03/17/17 19:28 HYDROmorphone INJ [Dilaudid Inj] 0.5 mg IVP Q4HR PRN oxyCODONE/ACET 5/325 [Percocet 5 mg/325 mg] 1 - 2 tab PO Q6H PRN 03/17/17 21:00 Flecainide [Tambocar] 75 mg PO BID Patient Own Med [Patient Own Medication] 1 each INH BID 03/18/17 05:08 Sodium Chloride Flush 0.9% [Normal Saline Flush 0.9%] 10 ml IVP PRN PRN 03/18/17 09:00 Patient Own Med [Patient Own Medication] 2 each INH Q4H PRN 03/18/17 10:38 Initiate Bowel Care Protocol [RC] QSHIFT 03/18/17 12:00 Polyethylene Glycol 3350 [Miralax] 17 gm PO DAILY 03/18/17 18:05 Sodium Chloride 0.9% [Normal Saline 0.9%] 1,000 ml Potassium Chloride Inj 40 meq IV 100 mls/hr 03/19/17 06:00 BMP - BASIC METABOLIC PANEL [CHEM] Routine MAGNESIUM [CHEM] Routine Subjective - Subjective Patient Reports: Feeling Better Nursing Reports: No Complaints Objective Vital Signs: Vital Signs - 24 hr 03/18/17 03/18/17 03/18/17 00:27 06:07 08:12 Temperature 36.9 C 36.7 C 36.6 C Heart Rate Heart Rate [ 94 54 L 55 L Brachial] Respiratory 16 16 20 Rate Blood Pressure 105/55 L 122/48 L 120/50 L [Right Brachial artery] O2 Saturation 93 92 94 03/18/17 03/18/17 03/18/17 08:20 12:16 15:36 Temperature 36.6 C 36.5 C Heart Rate 55 L Heart Rate [ 65 61 Brachial] Respiratory 16 22 18 Rate Blood Pressure 98/74 108/50 L [Right Brachial artery] O2 Saturation 94 92 Oxygen O2 Source Room air I&O (Last 24 Hrs): Intake and Output Totals x24h 03/16/17 03/17/17 03/18/17 23:59 23:59 23:59 Intake Total 336 1170 350 Output Total 650 1600 800 Balance -314 -430 -450 General: Alert HEENT: Mucous membr. moist/pink Neck: Supple, No JVD Neuro: Alert Cardiovascular: Regular rate, No murmurs Respiratory: No respiratory distress Extremities: No edema - Results Results: Laboratory Results WBC 7.6 x10^3/uL (4.8-10.8) 03/16/17 19:44 RBC 4.82 10^6/uL (4.20-5.40) 03/16/17 19:44 Hgb 13.4 g/dL (12.0-16.0) 03/16/17 19:44 Hct 40.3 % (37.0-47.0) 03/16/17 19:44 MCV 83.7 fL (81.0-99.0) 03/16/17 19:44 MCH 27.8 pg (27.0-31.0) 03/16/17 19:44 MCHC 33.2 g/dL (32.0-36.0) 03/16/17 19:44 RDW 13.5 % (12.0-15.0) 03/16/17 19:44 Plt Count 203 10^3/uL (130-450) 03/16/17 19:44 MPV 8.3 fL (7.9-10.8) 03/16/17 19:44 Neut # 5.6 10^3/uL (1.5-6.6) 03/16/17 19:44 Lymph # 1.1 10^3/uL (1.5-3.5) L 03/16/17 19:44 [place] # 0.7 10^3/uL (0.0-1.0) 03/16/17 19:44 Eos # 0.1 10^3/uL (0.0-0.7) 03/16/17 19:44 Baso # 0.0 10^3/uL (0.0-0.1) 03/16/17 19:44 Absolute Nucleated RBC 0.00 x10^3/uL 03/16/17 19:44 Nucleated RBCs 0.0 /100WBC 03/16/17 19:44 PT 25.6 secs (9.9-12.6) H 03/16/17 19:44 INR 2.2 (0.8-1.2) H 03/16/17 19:44 Sodium 137 mmol/L (135-145) 03/18/17 07:27 Potassium 3.4 mmol/L (3.5-5.0) L 03/18/17 07:27 Chloride 100 mmol/L (101-111) L 03/18/17 07:27 Carbon Dioxide 29 mmol/L (21-32) 03/18/17 07:27 Anion Gap 8.0 (6-13) 03/18/17 07:27 BUN 14 mg/dL (6-20) 03/18/17 07:27 Creatinine 0.7 mg/dL (0.4-1.0) 03/18/17 07:27 Estimated GFR (MDRD) 81 (>89) L 03/18/17 07:27 Glucose 118 mg/dL (70-100) H 03/18/17 07:27 Calcium 8.7 mg/dL (8.5-10.3) 03/18/17 07:27 Magnesium 2.0 mg/dL (1.7-2.8) 03/16/17 19:44 Total Bilirubin 0.8 mg/dL (0.2-1.0) 03/16/17 14:55 AST 29 IU/L (10-42) 03/16/17 14:55 ALT 51 IU/L (10-60) 03/16/17 14:55 Alkaline Phosphatase 82 IU/L (42-121) 03/16/17 14:55 Troponin I < 0.04 ng/mL (<0.49) 03/18/17 07:27 B-Natriuretic Peptide 384 pg/mL (5-100) H 03/16/17 14:55 Total Protein 7.2 g/dL (6.7-8.2) 03/16/17 14:55 Albumin 4.0 g/dL (3.2-5.5) 03/16/17 14:55 Globulin 3.2 g/dL (2.1-4.2) 03/16/17 14:55 Albumin/Globulin Ratio 1.3 (1.0-2.2) 03/16/17 14:55 Lipase 19 U/L (22-51) L 03/16/17 14:55 Urine Color YELLOW 03/16/17 22:10 Urine Clarity SL. CLOUDY (CLEAR) 03/16/17 22:10 Urine pH 6.0 PH (5.0-7.5) 03/16/17 22:10 Ur Specific [place] 1.010 (1.002-1.030) 03/16/17 22:10 Urine Protein NEGATIVE mg/dL (NEGATIVE) 03/16/17 22:10 Urine Glucose (UA) NEGATIVE mg/dL (NEGATIVE) 03/16/17 22:10 Urine Ketones NEGATIVE mg/dL (NEGATIVE) 03/16/17 22:10 Urine Occult Blood LARGE (NEGATIVE) H 03/16/17 22:10 Urine Nitrite NEGATIVE (NEGATIVE) 03/16/17 22:10 Urine Bilirubin NEGATIVE (NEGATIVE) 03/16/17 22:10 Urine Urobilinogen 1 (NORMAL) E.U./dL (NORMAL) 03/16/17 22:10 Ur Leukocyte Esterase NEGATIVE (NEGATIVE) 03/16/17 22:10 Urine RBC TNTC /HPF (0-5) H 03/16/17 22:10 Urine WBC 6-10 /HPF (0-5) H 03/16/17 22:10 Ur Squamous Epith Cells RARE Squamous (<= Few) 03/16/17 22:10 Urine Bacteria None Seen /HPF (None Seen) 03/16/17 22:10 Ur Microscopic Review INDICATED 03/16/17 22:10 Urine Culture Comments INDICATED 03/16/17 22:10
[2017-03-18] MEDS ORDERED: POTASSIUM CHLORIDE 20 MEQ TABLET PO SCH (21:00)
[2017-03-18] MEDS: traZODone 50 MG TABLET PO SCH (21:06)
[2017-03-19] MEDS: HYDROmorphone 1 MG/ML SYRINGE IVP PRN (05:12)
[2017-03-19] MEDS: GABAPENTIN 100 MG CAPSULE PO SCH (05:13)
[2017-03-19] MEDS: SODIUM CHLORIDE FLUSH 0.9% 10 ML SYRINGE IVP PRN (05:13)
[2017-03-19] MEDS: oxyCOD/ACETAMIN 5 MG/325 MG TABLET PO PRN (07:51)
[2017-03-19] MEDS: FLUTICASONE HFA 110 MCG INHALER INH SCH (08:10)
[2017-03-19 08:33] LABS: CALCIUM 9.3 mg/dL (8.5-10.3); CREATININE 0.7 mg/dL (0.4-1.0); POTASSIUM 4.2 mmol/L (3.5-5.0)
[2017-03-19] MEDS ORDERED: POLYETHYLENE GLYCOL 3350 17 GM PACKET PO SCH (09:00)
[2017-03-19] MEDS: POLYETHYLENE GLYCOL 3350 17 GM PACKET PO SCH (09:15)
[2017-03-19] MEDS: LOSARTAN 50 MG TABLET PO SCH (09:16)
[2017-03-19] MEDS: FAMOTIDINE 20 MG TABLET PO SCH (09:16)
[2017-03-19] MEDS: CHOLECALCIFEROL 5,000 UNIT CAPSULE PO SCH (09:16)
[2017-03-19] MEDS: FLECAINIDE 50 MG TABLET PO SCH (09:16)
[2017-03-19] MEDS: DULoxetine 30 MG CAPSULE PO SCH (09:19)
[2017-03-19] MEDS: FUROSEMIDE 40 MG/4 ML VIAL IVP SCH (09:19)
[2017-03-19] MEDS: POTASSIUM CHLORIDE 20 MEQ TABLET PO SCH (09:20)
--- NOTE | 2017-03-19 11:22 | Discharge Plan ---
Discharge Plan Disposition: Home, Self Care Condition: Fair Prescriptions: Losartan [Cozaar] 50 mg PO DAILY #30 tablet Flecainide [Tambocar] 75 mg PO BID #60 tablet Diet: Low Sodium Activity Restrictions: Activity as Tolerated Shower Restrictions: No Driving Restrictions: No Weight Bearing: Full Weight Instruction Topics: Heart Failure Tracking Weight, Heart Failure Being Active, Heart Failure Coping, Heart Failure Diet Changes, Heart Failure, Heart Failure Warning Signs Additional Instructions or Follow Up instructions: Take only this list of medications (including new medications and different dosages of prior medications) your salt intake as advised Come for dietary outpatient teaching at our [facility] [place] center Make a F/U appointment with your EP salesperson books for further management of your recurrent intermittent Afib Follow-Up Care: Dietitian No Smoking: If you smoke, Please STOP! Call for help. Follow-up with: Tangela Mariscal MD [Primary Care Provider] -
[2017-03-19 12:13] VITALS: BP 103/42
--- NOTE | 2017-03-20 04:08 | DISCHARGE SUMMARY ---
DATE OF ADMISSION: 03/16/2017 DATE OF DISCHARGE: 03/19/2017 REASON FOR ADMISSION: Congestive heart failure and paroxysmal atrial fibrillation after atrial fibril lation ablation approximately 2 weeks previously. HISTORY OF PRESENT ILLNESS: This is a 76-year-old white female with a history of chronic obstructive pulmonary disease from prior smoking. She quit smoking 12 years ago. She has a history of hypertensio n, depression, low back pain, history of atrial fibrillation that developed approximately 6 months pr ior. The past management for the AFib included elective cardioversion and eventually she underwent AF ib ablation done on 03/06/2017. Following this, she states she was put on flecainide. Since being dis charged from the AFib ablation, she has "felt worse." By this, she means that she was short of breath with minimal activity and developed orthopnea and leg edema. She continued to take medications as we re prescribed. She denied any chest pain, nausea or vomiting. She did have mild lightheadedness. MEDICATIONS AT ADMISSION 1. Prilosec. 2. Zofran. 3. Proventil HFA. 4. Cymbalta. 5. Flovent. 6. Gabapentin. 7. Losartan. 8. Amitiza. 9. Reclast yearly. 10. Oxycodone p.r.n. 11. Desyrel. 12. Vitamin D3. 13. Diltiazem. 14. Lopressor. 15. Lasix. 16. Biotin. 17. Potassium replacement. 18. Flecainide 50 mg p.o. b.i.d. 19. Xarelto 20 mg every morning. ALLERGIES 1. PENICILLIN. 2. SULFA. 3. CLINDAMYCIN. SOCIAL HISTORY: Revealed quitting smoking 12 years ago. Social alcohol intake. No drug use. PHYSICAL EXAMINATION: At admission, physical exam was remarkable for mild shortness of breath with sp eaking. Blood pressure was 130/50, heart rate in the 50s and as low as 46 in sinus bradycardia. Bibas ilar rales went half way up bilaterally. No murmur on cardiac exam. Had 1+ edema to the mid shins. LABORATORY: Significant labs included sodium 141, potassium 3.5, normal BUN and creatinine, BNP 384, hemoglobin 13.3, normal platelet count. EKG with sinus bradycardia with left atrial enlargement and borderline prolonged QT. Her chest x-ray showed mild pulmonary congestion. Her CT of her chest showed moderate hiatal hernia, no pulmonary emb [place], normal LV and RV sizes, small pericardial effusions, mildly enlarged mediastinal lymph nodes. HOSPITAL COURSE 1. Congestive heart failure exacerbation. She underwent an echo, which showed preserved LV contractil ity and mild pulmonary hypertension. She was stated on IV diuretics b.i.d. and had good urine output daily, resolution of her rales on day 2 and resolution of her leg edema by day 3. She was able to amb ulate slightly longer distances without dyspnea. The patient admits that she has had no intensive tea cesar regarding dietary restrictions such as salt elimination and fluid restriction. This was provide d to the patient during this admission. 2. Recent atrial fibrillation ablation with new flecainide dosing. Because of the bradycardia, the pa tient's diltiazem and Lopressor were discontinued and flecainide was adjusted when she developed epis odes of paroxysms of AFib, some of which were tachycardic, but only brief, lasting possibly several h ours. The Xarelto was continued. 3. Chronic obstructive pulmonary disease. The patient has p.r.n. inhalers and home oxygen to use p.r. n. The enlarged lymph nodes on diagnostic imaging need to be followed in the future. 4. Depression. The patient was stable during her course on present management. PLAN: The patient has been discharged with no prior metoprolol, no prior diltiazem, and her flecainid e dose was adjusted to 75 mg p.o. b.i.d., and losartan was decreased from 100 mg daily to 50 mg daily because of relatively low blood pressures during this admission during IV diuresis. 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 JOB #: [id number] EXT JOB #:[id number]
== END 2017-03-19 13:21 | disposition home or self-care (01) | DRG 293 ==
LOC: ED 11:40 → MS2 19:24
PROVIDERS: ADMIT Internal Medicine; ATTEND Internal Medicine
DX: I31.3 Pericardial effusion (noninflammatory) (principal); R00.1 Bradycardia, unspecified; J81.0 Acute pulmonary edema; I11.0 Hypertensive heart disease with heart failure; I50.33 Acute on chronic diastolic (congestive) heart failure; K59.09 Other constipation; I48.0 Paroxysmal atrial fibrillation; J44.9 Chronic obstructive pulmonary disease, unspecified; F32.9 Major depressive disorder, single episode, unspecified; K44.9 Diaphragmatic hernia without obstruction or gangrene; Z87.891 Personal history of nicotine dependence; Z79.51 Long term (current) use of inhaled steroids; Z79.891 Long term (current) use of opiate analgesic; Z79.899 Other long term (current) drug therapy
CPT/HCPCS: 36415; 71010; 71275; 80048; 80053; 81001; 81003; 83690; 83735; 83880; 84484; 85025; 85610; 87086; 93005; 93306; 94640; 96374; 99284; 99285

== ENCOUNTER 2017-08-11 09:22 | Outpatient (CLI) | payer MEDICARE, OTHER | END 2017-08-11 09:23 | disposition short-term general hospital (02) | LOC: EMS 09:22 | PROVIDERS: ATTEND Surgery | DX: R53.1 Weakness (principal); R42 Dizziness and giddiness; R06.02 Shortness of breath; R00.1 Bradycardia, unspecified | CPT/HCPCS: A0425; A0427 ==